=== PATIENT | female | born 1995 | race Caucasian/White ===

== ENCOUNTER 2020-07-04 08:23 | Outpatient (REF) | payer BC, SELFPAY ==
[2020-07-04 09:11] LABS: Hematocrit 43.1 % (37-47); Hemoglobin 14.5 g/dl (12.0-16.0); Mean Corpuscular HGB Conc 33.6 g/dl (31.0-35.0); Mean Corpuscular Hemoglobin 29.2 pg (27.0-33.0); Mean Corpuscular Volume 86.7 fL (80-98); Mean Platelet Volume 9.9 fL (9.4-12.3); Platelet Count 277 X10*3/uL (160-400); Red Blood Count 4.97 X10*6/uL (4.20-5.50); Red Cell Distribution Width 12.2 % (11.0-16.0); White Blood Count 5.6 X10*3/uL (4.8-10.8)
[2020-07-04 09:24] LABS: Alanine Aminotransferase 19 U/L (0-31); Albumin Level 4.5 g/dL (3.5-5.0); Alkaline Phosphatase 69 U/L (39-117); Anion Gap 11 (12-20); Aspartate Amino Transferase 25 U/L (5-31); Bilirubin Direct 0.2 mg/dL (0.0-0.5); Bilirubin Total 0.4 mg/dL (0.0-1.0); Blood Urea Nitrogen 12 mg/dL (9-16); Calcium 9.3 mg/dL (8.4-10.2); Carbon Dioxide 28 mmol/L (22-29); Chloride 104 mmol/L (96-108); Cholesterol 146 mg/dL; Estimated Glomerular Filt Rate > 60; Glucose Fasting 90 mg/dL (60-99); HDL Cholesterol 69 mg/dL; LDL Cholesterol Calculated 69 mg/dl; Potassium 4.4 mmol/L (3.3-5.1); Sodium 139 mmol/L (135-145); Triglycerides 42 mg/dL
[2020-07-04 09:44] LABS: TSH reflex Free T4 1.55 uIU/mL (0.32-4.0)
== END 2020-07-04 08:24 | disposition home or self-care (01) ==
LOC: HO.LAB 08:23
PROVIDERS: PCP Hospitalist; Visit Provider Hospitalist
DX: Z00.00 Encounter for general adult medical examination without abnormal findings (principal)
CPT/HCPCS: 36415; 80048; 80061; 80076; 84443; 85027

== ENCOUNTER 2020-07-28 08:47 | Outpatient (REF) | payer OTHER, SELFPAY ==
[2020-07-28 09:10] LABS: COVID-19 Test Negative (Negative)
== END 2020-07-28 08:48 | disposition home or self-care (01) ==
LOC: HO.EMPCOV 08:47
PROVIDERS: Visit Provider Internal Medicine
DX: Z20.822 Contact with and (suspected) exposure to COVID-19 (principal)
CPT/HCPCS: 36415; 87635; C9803

== ENCOUNTER 2021-04-16 08:12 | Outpatient (REF) | payer BC, SELFPAY ==
[2021-04-16 13:43] LABS: CT PCR NOT DETECTED (Not Detect.); NG PCR NOT DETECTED (Not Detect.)
== END 2021-04-16 08:13 | disposition home or self-care (01) ==
LOC: HO.LAB 08:12
PROVIDERS: PCP Hospitalist; Visit Provider Advanced Practice Midwife
DX: Z01.411 Encounter for gynecological examination (general) (routine) with abnormal findings (principal); L68.0 Hirsutism; N94.6 Dysmenorrhea, unspecified
CPT/HCPCS: 87491; 87591; 88142

== ENCOUNTER 2021-04-22 09:54 | Outpatient (REF) | payer BC, SELFPAY ==
[2021-04-22 12:02] LABS: Thyroid Stimulating Hormone 0.98 uIU/mL (0.32-4.0)
[2021-04-25 01:41] LABS: DHEA Sulfate 449 mcg/dL (18-391)
[2021-04-25 02:12] LABS: Prolactin 12.9 ng/mL
[2021-04-28 11:07] LABS: Testosterone, Free 3.6 pg/mL (0.1-6.4); Testosterone, Total 38 ng/dL (2-45)
== END 2021-04-22 09:55 | disposition home or self-care (01) ==
LOC: HO.WFDLDS 09:54
PROVIDERS: PCP Hospitalist; Visit Provider Advanced Practice Midwife
DX: L68.0 Hirsutism (principal); N92.6 Irregular menstruation, unspecified
CPT/HCPCS: 36415; 82627; 83498; 84146; 84402; 84403; 84443

== ENCOUNTER 2021-05-07 11:00 | Outpatient (REF) | payer BC, SELFPAY ==
--- NOTE | ~2021-05-07 | US_ITS ---
EXAMINATION: US PELVIS CLINICAL INFORMATION: N92.6 - Irregular menstruation, unspecified. LMP 04/21/2021. Age 25. COMPARISON: None TECHNIQUE: Ultrasound of the pelvis is performed using both transabdominal and transvaginal transducers along with Doppler. Transvaginal imaging is performed due to inadequate visualization transabdominally. FINDINGS: Uterus: The uterus is anteverted and measures 7.3 x 3.4 x 4.4 cm. Volume 57 mL. The double wall endometrial thickness is normal at 8 mm. The uterus is smooth in contour and has normal myometrial echogenicity. No visible fibroid. Adnexa: Both ovaries are visualized. There is normal color flow to the adnexa. There is no ovarian torsion. There is no pelvic ascites or fluid collection. Right ovary measures 4.3 x 2.7 x 2.9 cm. Volume 17.7 mL. Left ovary measures 4.2 x 1.8 x 2.6 cm. Volume 10.3 mL. There are scattered follicles seen in both ovaries, under 12 in number on each side. Dominant follicle measuring only 1.3 cm. US/US pelvic and transvaginal IMPRESSION: 1. Normal pelvic wall endometrial millimeters. 2. No visible fibroid. 3. No adnexal mass or pelvic ascites.
== END 2021-05-07 11:01 | disposition home or self-care (01) ==
LOC: HO.US 11:00
PROVIDERS: PCP Hospitalist; Visit Provider Advanced Practice Midwife
DX: N92.6 Irregular menstruation, unspecified (principal); L68.0 Hirsutism
CPT/HCPCS: 76830; 76856

== ENCOUNTER → 2021-05-14 15:57 | Outpatient (BNVA) | payer BC, SELFPAY | PROVIDERS: PCP Hospitalist; Visit Provider Advanced Practice Midwife ==

== ENCOUNTER 2021-12-18 09:21 | Outpatient (REF) | payer BC, SELFPAY ==
[2021-12-18 11:49] LABS: Hematocrit 41.4 % (37.0-47.0); Hemoglobin 13.8 g/dl (12.0-16.0); Mean Corpuscular HGB Conc 33.3 g/dl (31.0-35.0); Mean Corpuscular Hemoglobin 28.6 pg (27.0-33.0); Mean Corpuscular Volume 85.9 fL (80.0-98.0); Mean Platelet Volume 9.9 fL (9.4-12.3); Platelet Count 283 X10*3/uL (160-400); Red Blood Count 4.82 X10*6/uL (4.20-5.50); Red Cell Distribution Width 12.5 % (11.0-16.0); White Blood Count 6.4 X10*3/uL (4.8-10.8)
[2021-12-18 12:07] LABS: Alanine Aminotransferase 7 U/L (0-31); Albumin Level 4.4 g/dL (3.5-5.0); Alkaline Phosphatase 69 U/L (39-117); Anion Gap 11 (12-20); Aspartate Amino Transferase 15 U/L (5-31); Bilirubin Total 0.7 mg/dL (0.0-1.0); Blood Urea Nitrogen 11 mg/dL (9-16); Calcium 8.9 mg/dL (8.4-10.2); Carbon Dioxide 25 mmol/L (22-29); Chloride 106 mmol/L (96-108); Cholesterol 145 mg/dL; Estimated Glomerular Filt Rate > 60; Glucose Fasting 77 mg/dL (60-99); HDL Cholesterol 63 mg/dL; LDL Cholesterol Calculated 76 mg/dl; Potassium 4.4 mmol/L (3.3-5.1); Sodium 138 mmol/L (135-145); Total Protein 6.9 g/dL (6.5-8.0); Triglycerides 33 mg/dL
[2021-12-18 12:28] LABS: TSH reflex Free T4 0.89 uIU/mL (0.32-4.0)
== END 2021-12-18 09:22 | disposition home or self-care (01) ==
LOC: HO.WFDLDS 09:21
PROVIDERS: Visit Provider Hospitalist
DX: Z00.00 Encounter for general adult medical examination without abnormal findings (principal)
CPT/HCPCS: 36415; 80053; 80061; 84443; 85027

== ENCOUNTER 2023-04-12 09:27 | Outpatient (AMB) | payer BC, SELFPAY ==
--- NOTE | 2023-04-12 09:32 | A.OFFPC_ITS ---
Vital Signs 04/12/23 09:34 Height 5 ft 6 in Weight 156 lb BMI 25.2 BP 114/60 Blood Pressure Location Rt brachial Position Sitting Respiration 12 Pulse 97 Pulse Source Pulse Oximeter Pulse Oximetry (%) 100 Oxygen Delivery Method Room Air Intake Visit Reasons: trans of care from [facility] [place] Note: Patient is here for a transfer of care from Kendall Kelly DNP to Alex Stratton DNP. Patient reports she has a concern for excessive thirst and frequent urination from fluid intake. Art Therapy Certified Supervisor Required: No Accompanied by: Self / Same As Patient Allergies No Known Allergies Allergy (Verified 04/12/23 09:40) Tobacco use date assessed: 04/12/23 Dental Screening Dental Screen Date: 04/12/23 Did you have a dental visit in the last 12 months?: No Did you have a dental problem in the last 6 months where you did not have access to dental care?: No Was dental information given to patient?: Patient has dentist HPI HPI Comments History of Present Illness Details 27-year-old female presents for transfer of care and an extended physical exam Her former PCP is AIDA who is no longer with the practice. Her last physical exam and blood work was in November 2021 She has past medical history of PCOS, hirsutism, dysmenorrhea, and allergic dermatitis She is not on prescription medications She reports persistent thirst and urination for the past 1 year. She offers no other complaints and denies acute symptoms at this time. She notes that she drinks alcohol occasionally. She denies smoking cigarette or recreational drug use She states that she is sexually active, in a monogamous relationship, and has not concerns for STD She notes that her last pap smear test was 2 years ago: normal [facility] Medical History Seasonal allergies Surgical History History of appendectomy Family History (Updated 04/12/23 @ 09:43 by Hansa Dotson CMA) Maternal Grandfather Heart attack Paternal Grandfather Diabetes Paternal Grandmother Breast cancer Mother Traveling blood clot in leg Maternal Grandmother Traveling blood clot in leg Social History (Updated 04/12/23 @ 09:45 by Hansa Dotson CMA) Household Members: Family Housing: House Alcohol intake: current Alcohol intake frequency: a few times a month Patient Tobacco Use Status: Never used Tobacco e-Cigarette/Vaping Use: Never Used service: No Current occupational status: employed Current [place] [employer] [place] [employer] Current occupational exposures/hazards: Yes Sexual orientation: Unable to collect Gender identity: Unable to collect Cognitive needs: No Hearing needs: No Vision needs: No Female Reproductive History Menstrual Age of Menarche: 12 Questionnaire PHQ-9 Over the last 2 weeks, how often have you been bothered by any of the following problems? 1. Little interest or pleasure in doing things: several days 2. Feeling down, depressed, or hopeless: not at all 3. Trouble falling or staying asleep, or sleeping too much: more than half the days 4. Feeling tired or having little energy: more than half the days 5. Poor appetite or overeating: not at all 6. Feeling bad about yourself - or that you are a failure or have let yourself or your family down: more than half the days 7. Trouble concentrating on things, such as reading the newspaper or watching television: not at all 8. Moving or speaking so slowly that other people could have noticed. Or the opposite - being so fidgety or restless that you have been moving around a lot more than usual: not at all 9. Thoughts that you would be better off or of hurting yourself in some way: not at all Total score: 7 Depression Screening Interpretation: Positive Depression Screening Done: Yes 32635 - PHQ-9 Billing: Yes Source: Developed by Drs. Jaxon Mann, Ani Suárez, Rodrigo Azevedo and colleagues, with an educational austyn from [employer]. Thrive Questionnaire Date Thrive assessed: 04/12/23 I am a: Patient What is your living situation today?: I have a steady place to live Within the past 12 months, did the food you bought not last and you didn't have the money to get more?: Never true Within the past 12 months, did you worry whether your food would run out before you got money to buy more?: Never true Do you have trouble paying for medicines?: No Do you have trouble getting transportation to medical appointments?: No Do you have trouble paying your heating and electricity bill?: No Do you have trouble taking care of your child, family member or friend?: No Do you have trouble with day-to-day activities such as bathing, preparing meals, shopping, managing finances, etc.?: No Are you currently unemployed and looking for a job?: No Are you interested in more education?: No Please select the resources that you would like help with: None Currently or been in a relationship where the following occur: no concerns reported AUDIT C Alcohol Use Questionnaire (AUDIT-C) 1. How often do you have a drink containing alcohol?: 2-4 times a month 2. How many drinks containing alcohol do you have on a typical day when you are drinking?: 1 or 2 3. How often do you have six or more drinks on one occasion?: Never Total Score: 2 BOBBY-7 AMB Questionnaire BOBBY-7 Date BOBBY - 7 assessed: 04/12/23 Feeling nervous, anxious, or on edge: 2 = More than half the days Not being able to stop or control worryin = Several days Worrying too much about different things: 1 = Several days Trouble relaxin = Not at all Being so restless that it is hard to sit still: 0 = Not at all Becoming easily annoyed or irritable: 1 = Several days Feeling afraid as if something awful might happen: 1 = Several days Total BOBBY-7 score (0-4 normal; 5-9 mild; 10-14 moderate; 15-21 severe): 6 Source: Developed by Drs. Jaxon Mann, Ani Suárez, Rodrigo Azevedo and colleagues, with an educational austyn from [employer]. BOBBY-7 Assessment Billing BOBBY-7 Assessment Tool: BOBBY-7 Assessment [id number] Review of Systems Const Details: Denies chills, Denies fatigue, Denies fever(s), Denies headache(s) and Denies weakness HEENT Denies change in vision, Denies dizziness, Denies headache(s), Denies hearing loss, Denies nasal congestion, Denies sinus pain, Denies sinus pressure and Den ies sore throat Card Denies chest pain, Denies lightheadedness, Denies dyspnea and Denies other (palpitations) Resp Denies cough, Denies dyspnea and Denies wheezing GI Denies abdominal pain, Denies melena, Denies hematochezia, Denies change in bowel habits, Denies dyspepsia and Denies nausea Denies hematuria and Denies dysuria Musc Denies abnormal gait, Denies myalgias, Denies arthralgias, Denies numbness and Denies tingling Skin/Breast Denies rash, Denies unusual bruising and Denies wounds Neuro Denies abnormal gait, Denies dizziness, Denies headache(s), Denies memory loss, Denies numbness, Denies Sensory deficit (Neuro), Denies tingling and Denies weakness Psych Denies anxiety, Denies depression and Denies memory loss Endo Denies cold intolerance, Denies fatigue, Denies heat intolerance, Reports polydipsia, Denies polydipsia and Report polyuria Grant/Lymph Denies easy bleeding and Denies easy bruising Aller/Immun Denies wheezing Physical exam (Primary Care) Vital Signs: Last Vital Signs Pulse 97 04/12/23 09:34 Resp 12 04/12/23 09:34 BP 114/60 04/12/23 09:34 Pulse Ox 100 04/12/23 09:34 Oxygen Delivery Method Room Air 04/12/23 09:34 BMI result Body Mass Index 25.2 Tobacco/Smoking Status: Tobacco use Status Tobacco use date assessed 04/12/23 04/12/23 09:42 Patient Tobacco Use Status Never used Tobacco 04/12/23 09:45 e-Cigarette/Vaping Use Never Used 04/12/23 09:45 PHQ-9: PHQ-9 Score PHQ-9: Total score 7 04/12/23 09:49 Depression Screening Interpretation: Positive Thrive Assessment: Date of Thrive Assessment Date Thrive assessed 04/12/23 04/12/23 09:49 Currently or been in a relationship where the following occur: no concerns reported Const Other: General: no acute distress, well developed, alert and awake Nutritional Appearance: well nourished Orientation/consciousness: patient oriented x3 HENMT Head: Yes normocephalic and Yes atraumatic Ears: hearing grossly normal bilaterally and TM's normal bilaterally General nose exam: Normal external nose present and Normal nares present Mouth: Normal oral and palatal mucosa present and moist mucous membranes Teeth and gingiva: dentition normal Throat: Yes oropharynx normal Eyes Pupils: Equal, round and reactive pupils present and Pupil accommodation reflex normal EOM: EOMs intact bilaterally Neck Neck: Yes normal visual inspection, Yes no lymphadenopathy and Yes trachea midline Thyroid: Thyroid normal Carotids: no bruits Lymphatic: no lymphadenopathy noted Chest Chest palpation & inspection: normal inspection of the chest Resp Effort & Inspection: normal respiratory effort Auscultation: clear to auscultation bilaterally Cardio Rate: regular rate Rhythm: regular rhythm Heart sounds: S1 normal heart sound present, S2 normal heart sound present, no gallops, no murmurs and no rubs Bruits: no abdominal aortic bruits and no carotid bruits GI Palpation (GI): No Abdominal aortic bruit present, Soft to palpation, nontender, No hepatosplenomegaly present and No Rebound tenderness present Auscultation: normal bowel sounds General: Yes no CVA tenderness Back/Spine/Pelvis Back: no CVA tenderness Cervical Spine: cervical ROM normal and No Cervical spine tenderness Thoracic/Lumbar Spine: thoraco-lumbar ROM normal, No pain with thoraco-lumbar ROM, No thoracic spinal tenderness and No lumbar spinal tenderness Skin General: warm and dry. Normal skin color. Normal skin turgor Lesions: no lesions Rashes: no rashes Trauma: no lacerations or abrasions Wounds: no wounds Nails: normal Neuro General: patient oriented x3, gait normal and CN's II-XI intact bilaterally Cranial nerves: Yes Equal, round and reactive pupils present Cognition (Neuro): normal cognition Gait exam (Neuro): Normal gait present Motor exam (neuro): 5/5 motor strength present throughout Sensory Exam: No Sensory deficit (Neuro) Deep tendon reflexes (DTR's): Right patellar reflex intensity grade: 2+ and Left patellar reflex intensity grade: 2+ Extrem General: Yes normal to inspection, No edema and No calf tenderness Psych Appearance: grossly normal Affect: normal affect Attitude: cooperative Thought process: Normal thought process present Assessment and Plan Assessment & Plan (1) Normal physical exam: Code(s): Z00.00 - Encounter for general adult medical examination without abnormal findings Plan: No significant physical restrictions or limitations noted Advised to get fasting blood work done and schedule a telehealth visit for labs review Return with worsening symptoms or concerns Verbalized understanding and agreed with treatment plan. (2) Polydipsia: Code(s): R63.1 - Polydipsia Plan: She reports persistent thirst and urination for the past 1 year Likely insulin resistant and hyperglycemia due to PCOS Will check fasting glucose and make changes as needed Advised to get fasting blood work done and schedule a follow-up visit for labs review Return with concerns or worsening symptoms Verbalized understanding and agreed with the plan. (3) Polyuria: Code(s): R35.89 - Other polyuria Plan: As above (4) Laboratory tests ordered as part of a complete physical exam (CPE): Code(s): Z00.00 - Encounter for general adult medical examination without abnormal findings Plan: Fasting labs ordered as part of a complete physical exam. Advised to fast for at least 10 hours before getting labs drawn. May drink water Verbalized understanding and agreed with treatment plan. Orders: Orders Complete Blood Count Auto Diff Today Z00.00 - Encounter for general adult medical examination without abnormal findings Lipid Panel Today Z00.00 - Encounter for general adult medical examination without abnormal findings UA CC w/rflx Micro + Cult Today Z00.00 - Encounter for general adult medical examination without abnormal findings Comprehensive Cruger. Panel Fast Today Z00.00 - Encounter for general adult medical examination without abnormal findings TSH reflex Free T4 Today Z00.00 - Encounter for general adult medical examination without abnormal findings Coding Level of Care Code Est Pt Prev Care [id number]) Diagnoses Normal physical exam Z00.00 Polydipsia R63.1 Polyuria R35.89 Laboratory tests ordered as part of a complete physical exam (CPE) Z00.00 Additional Codes BOBBY-7 Assessment Billing - BOBBY-7 Assessment Tool: BOBBY-7 Assessment [id number] ([id number])
[2023-04-12 09:34] VITALS: BP 114/60; PULSE 97; RESP 12; O2SAT 100; BMI 25.2
== END 2023-04-12 10:43 | disposition home or self-care (01) ==
PROVIDERS: PCP Hospitalist; Visit Provider Nurse Practitioner Family
DX: Z00.00 Encounter for general adult medical examination without abnormal findings (principal); R63.1 Polydipsia; R35.89 Other polyuria
CPT/HCPCS: 99395

== ENCOUNTER 2023-04-12 10:00 | Outpatient (REF) | payer BC, SELFPAY ==
[2023-04-12 12:25] LABS: Appearance Urine Clear; Color Urine Yellow; Glucose Urine UA Negative (Negative); Leukocyte Esterase Urine Negative (Negative); Nitrite Urine Negative (Negative); Urine Blood Negative (Negative); Urine Ketones Negative (Negative); Urine Protein Negative (Neg-Trace)
== END 2023-04-12 10:01 | disposition home or self-care (01) ==
LOC: HO.LAB 10:00
PROVIDERS: Visit Provider Nurse Practitioner Family
DX: Z00.00 Encounter for general adult medical examination without abnormal findings (principal)
CPT/HCPCS: 81003

== ENCOUNTER 2023-04-20 09:12 | Outpatient (REF) | payer BC, SELFPAY ==
[2023-04-20 09:21] LABS: MANUAL DIFF FLAG NO
[2023-04-20 09:59] LABS: Basophils Percent Auto 0.3 % (0-2); Eosinophils Absolute Auto 0.1 X10*3/uL (0.0-0.4); Eosinophils Percent Auto 1.1 % (0-4); Hematocrit 42.1 % (37.0-47.0); Hemoglobin 14.4 g/dl (12.0-16.0); Imm Gran Abs Auto 0.02 X10*3/uL (0.00-0.03); Imm Gran Pct Auto 0.3 % (0.0-0.4); Lymphocytes Absolute Auto 1.4 X10*3/uL (1.2-4.9); Lymphocytes Percent Auto 21.7 % (20-40); Mean Corpuscular HGB Conc 34.2 g/dl (31.0-35.0); Mean Corpuscular Hemoglobin 28.9 pg (27.0-33.0); Mean Corpuscular Volume 84.4 fL (80.0-98.0); Mean Platelet Volume 9.6 fL (9.4-12.3); Monocytes Absolute Auto 0.4 X10*3/uL (0.1-1.2); Monocytes Percent Auto 6.4 % (2-11); Neutrophils Absolute Auto 4.4 x10*3/uL (2.0-8.3); Neutrophils Percent Auto 70.2 % (45-73); Platelet Count 273 X10*3/uL (160-400); Red Blood Count 4.99 X10*6/uL (4.20-5.50); Red Cell Distribution Width 12.5 % (11.0-16.0); White Blood Count 6.2 X10*3/uL (4.8-10.8)
[2023-04-20 10:56] LABS: Alanine Aminotransferase 10 U/L (0-31); Albumin Level 4.4 g/dL (3.5-5.0); Alkaline Phosphatase 68 U/L (39-117); Anion Gap 9 (12-20); Aspartate Amino Transferase 17 U/L (5-31); Bilirubin Total 0.5 mg/dL (0.0-1.0); Blood Urea Nitrogen 13 mg/dL (9-16); Calcium 9.4 mg/dL (8.4-10.2); Carbon Dioxide 29 mmol/L (22-29); Chloride 106 mmol/L (96-108); Cholesterol 150 mg/dL (<200); Estimated Glomerular Filt Rate > 60; Glucose Fasting 81 mg/dL (60-99); HDL Cholesterol 71 mg/dL (>40); LDL Cholesterol Calculated 73 mg/dL (<100); Potassium 4.2 mmol/L (3.3-5.1); Sodium 140 mmol/L (135-145); Triglycerides 30 mg/dL (<150)
[2023-04-20 11:06] LABS: TSH reflex Free T4 1.24 uIU/mL (0.32-4.0)
== END 2023-04-20 09:13 | disposition home or self-care (01) ==
LOC: HO.LAB 09:12
PROVIDERS: PCP Nurse Practitioner Family; Visit Provider Nurse Practitioner Family
DX: Z00.00 Encounter for general adult medical examination without abnormal findings (principal)
CPT/HCPCS: 36415; 80053; 80061; 84443; 85025

== ENCOUNTER 2023-04-26 16:52 | Outpatient (REF) | payer BC, SELFPAY ==
[2023-04-26 17:55] LABS: Estimated Average Glucose 91 mg/dL; Hemoglobin A1c % 4.8 % (<6.0)
== END 2023-04-26 16:53 | disposition home or self-care (01) ==
LOC: HO.LAB 16:52
PROVIDERS: PCP Nurse Practitioner Family; Visit Provider Nurse Practitioner Family
DX: R63.1 Polydipsia (principal); R35.89 Other polyuria; E28.2 Polycystic ovarian syndrome
CPT/HCPCS: 36415; 83036

== ENCOUNTER → 2024-02-14 13:23 | Outpatient (BNVA) | payer BC, SELFPAY | PROVIDERS: PCP Nurse Practitioner Family; Visit Provider Nurse Practitioner Family ==

== ENCOUNTER 2024-04-07 10:00 | Outpatient (AMB) | payer OTHER, SELFPAY ==
--- NOTE | 2024-04-07 10:50 | AM.OFFWIN_ITS ---
Intake Vital Signs 04/07/24 10:51 Height 5 ft 6 in Weight 152 lb BMI 24.5 BP 106/72 Blood Pressure Location Rt brachial Position Sitting Pulse 66 Pulse Source Pulse Oximeter Temp 97.6 F Temp Source Oral Pulse Oximetry (%) 97 Oxygen Delivery Method Room Air Intake Visit Reasons: EP-UTI Intake Note: Pt is here today c/o burning and itchy upon urination x2days Patient Tobacco Use Status: Never used Tobacco Allergies No Known Allergies Allergy (Verified 04/07/24 11:26) Medication List - Last Reconciled 04/07/24 by Daniela Cobb, RETAIL EXPERIENCE SPECIALIST- metformin 500 mg PO DAILY 30 days HPI HPI Comments History of Present Illness Details Pleasant 28-year-old female here today with complaints of UTI symptoms that started a few days ago. She complains dysuria and itching both of which symptoms are worse at the end of voiding. Her last menstrual period was about 1 month ago. She was sexually active and not on control. She has no concern for STDs. She denies any vaginal discharge. She did use some uidw-hms-ifbrqmb UTI medication for 2 days prior to coming in today. She did report some mild nausea but relates that to the slju-aql-ltezllf medications. She denies any fever, chills, abdominal pain, back pain. Exam Awake alert oriented, no acute distress Mucous membranes moist Regular rate and rhythm No CVAT bilat No suprapubic tenderness Plan Urine preg test negative. UA positive. Treat with nitrofurantoin 1 tab p.o. b.i.d. x3 days. Educated if symptoms do not improve or worsen to seek additional care. This note is constructed using voice recognition software. While every effort has been made to ensure accuracy in workers' compensation claims supervisor, still errors may have been included Sometimes, these errors may affect the content or meaning of the given sentence . Total time spent caring for the patient today was 30 minutes. This includes time spent before the visit reviewing the chart, time spent during the visit, and time spent after the visit on documentation [facility] Medical History Seasonal allergies Surgical History History of appendectomy Family History (Updated 04/12/23 @ 09:43 by Hansa Dotson CMA) Maternal Grandfather Heart attack Paternal Grandfather Diabetes Paternal Grandmother Breast cancer Mother Traveling blood clot in leg Maternal Grandmother Traveling blood clot in leg Social History (Updated 04/12/23 @ 09:45 by Hansa Dotson CMA) Household Members: Family Both parents involved: Yes Housing: House Alcohol intake: current Alcohol intake frequency: a few times a month Patient Tobacco Use Status: Never used Tobacco e-Cigarette/Vaping Use: Never Used service: No Current occupational status: employed Current occupation: [employer] [place] [employer]ulatory [employer] team Current occupational exposures/hazards: Yes Sexual orientation: Unable to collect Gender identity: Unable to collect Cognitive needs: No Hearing needs: No Vision needs: No Female Reproductive History Menstrual Age of Menarche: 12 Physical Exam Vital Signs: Last Vital Signs Temp 97.6 F 04/07/24 10:51 Pulse 66 04/07/24 10:51 BP 106/72 04/07/24 10:51 Pulse Ox 97 04/07/24 10:51 Oxygen Delivery Method Room Air 04/07/24 10:51 BMI result Body Mass Index 24.5 Results AMB Urinalysis, Automated UA Leukoctes 500 Kofi/uL Last Edit by Taryn Villarreal CMA on 04/07/24 11:01 UA Nitrite Negative Last Edit by Taryn Villarreal CMA on 04/07/24 11:01 UA Urobilinogen 0.2 mg/dL Last Edit by Taryn Villarreal CMA on 04/07/24 11:01 UA Protein 30 mg/dL Last Edit by Taryn Villarreal CMA on 04/07/24 11:01 UA pH 7.0 Last Edit by Taryn Villarreal CMA on 04/07/24 11:01 UA Blood 200 Horace/uL Last Edit by Taryn Villarreal CMA on 04/07/24 11:01 UA Specific [place] 1.020 Last Edit by Taryn Villarreal CMA on 04/07/24 11:01 UA Ketone Negative Last Edit by Taryn Villarreal CMA on 04/07/24 11:01 UA Bilirubin 0 mg/dL Last Edit by Taryn Villarreal CMA on 04/07/24 11:01 UA Glucose 0 mg/dL Last Edit by Taryn Villarreal CMA on 04/07/24 11:01 AMB Test Urine AMB Test Urine Negative Last Edit by Taryn Villarreal CMA on 11:47 Results Reviewed Results Reviewed: Laboratory Last Values Urine pH (Auto) 7.0 04/07/24 10:52 Specific [place] (Auto) 1.020 04/07/24 10:52 Urine Protein (Auto) 30 mg/dL 04/07/24 10:52 Glucose (UA)(Auto) 0 mg/dL 04/07/24 10:52 Urine Ketones (Auto) Negative 04/07/24 10:52 Urine Blood (Auto) 200 Horace/uL 04/07/24 10:52 Urine Nitrite (Auto) Negative 04/07/24 10:52 Urine Bilirubin (Auto) 0 mg/dL 04/07/24 10:52 Urine Urobilinogen (Auto) 0.2 mg/dL 04/07/24 10:52 Leukocyte Esterase (Auto) 500 Kofi/uL 04/07/24 10:52 Tst Clinic Negative 04/07/24 11:46 Assessment & Plan Assessment & Plan (1) UTI (urinary tract infection): Code(s): N39.0 - Urinary tract infection, site not specified Qualifiers: Urinary tract infection type: acute cystitis Hematuria presence: with hematuria Qualified Code(s): N30.01 - Acute cystitis with hematuria Plan: . (2) test negative: Code(s): Z32.02 - Encounter for test, result negative Plan: . Orders: Orders AMB Urinalysis Automated Today Z13.9 - Encounter for screening, unspecified AMB HCG Urine Test Today Z32.02 - Encounter for test, result negative Medications: New nitrofurantoin monohyd/m-cryst 100 mg must administer with a meal/food 100 mg PO Q12H 3 days 6 caps 0RF Patient Instructions: What is the urinary tract? This is the group of organs in the body that handle urine (figure 1). It includes the: ?Kidneys ? These are 2 vasquez-shaped organs that filter the blood to make urine. ?Bladder ? This is a balloon-shaped organ that stores urine. ?Ureters ? These are 2 tubes that carry urine from the kidneys to the bladder. ?Urethra ? This is the tube that carries urine from the bladder to the outside of the body. What are urinary tract infections? Urinary tract infections, or UTIs, are infections that affect either the bladder or the kidneys: ?Bladder infections are more common than kidney infections. They happen when bacteria get into the urethra and travel up into the bladder. The medical term for bladder infection is cystitis. Most of the time, when people talk about a UTI, they mean a bladder infection. ?Kidney infections happen when the bacteria travel even higher, up into the kidneys. The medical term for kidney infection is pyelonephritis. This is more serious than a bladder infection, and can lead to other serious problems if it is not treated properly. Both bladder and kidney infections are more common in females than males. The risk of UTIs is also higher in people who have a urinary catheter. A catheter is a thin, flexible tube that drains urine from the bladder. It might be used in people who are in the hospital and cannot urinate the normal way. What are the symptoms of a bladder infection? The symptoms include: ?Pain or a burning feeling when you urinate ?The need to urinate often ?The need to urinate suddenly or in a hurry ?Blood in the urine What are the symptoms of a kidney infection? The symptoms of a kidney infection can include the same urinary symptoms that happen with a bladder infection. In addition, kidney infections can cause: ?Fever ?Back pain ?Nausea or vomiting Will I need tests? Maybe. If you think that you might have a UTI, call your doctor or nurse. Sometimes, they can tell if you have one just by learning about your symptoms. Your doctor or nurse might do a simple urine test in the office. They might also do a more involved urine test to check for bacteria. How are UTIs treated? Most are treated with antibiotic pills. These work by killing the germs that cause the infection. ?If you have a bladder infection, you will probably need to take antibiotics for 3 to 7 days. ?If you have a kidney infection, you will probably need to take antibiotics for longer. Some people need to take them for 10 days. If you have a kidney infection, it's also possible that you will need to be treated in the hospital. Your symptoms should begin to improve within a day of starting antibiotics. But you should finish all of the antibiotic pills. Otherwise, the infection might come back. If needed, you can also take a medicine to numb your bladder. This medicine ea ses the pain caused by UTIs. It also reduces the need to urinate. What if I get bladder infections a lot? First, check with your doctor or nurse to make sure that you are really having bladder infections. The symptoms of bladder infection can be caused by other things. Your doctor or nurse will want to see if those problems might be causing your symptoms. If your doctor confirms that you are having repeated infections, there are things you can do to keep from getting more infections. These include: ?Drinking more fluid ? This can help prevent bladder infections. ?Vaginal estrogen ? If you have already been through menopause, your doctor might suggest this. Vaginal estrogen comes in a cream or a flexible ring that you put into your vagina. It can help prevent bladder infections. Other things that might help: ?Avoid spermicides (sperm-killing creams or gels) ? Spermicide is a form of control. It seems to increase the risk of bladder infections in some females, especially when used with a diaphragm. If you use spermicide and get a lot of bladder infections, you might want to try switching to a different form of control. ?Urinate right after sex ? Some doctors think this helps, because it helps flush out germs that might get into the bladder during sex. There is no proof it works, but it also cannot hurt. If you get a lot of bladder infections, and the above methods have not helped, talk to your doctor about what else you can do to prevent infection. Taking an antibiotic every day or after sex can help prevent bladder infections. But long- term use of antibiotics has downsides, so doctors usually suggest trying other things first, such as: ?Methenamine (brand name: Hiprex) ? This is a pill you take every day. It changes your urine to make it harder for bacteria to grow. It works almost as well as antibiotics to prevent bladder infections. ?Cranberry juice or other cranberry products ? These might help prevent bladder infections. But doctors do not know what the best dose is. Can other products prevent bladder infections? People often wonder about other natural products that claim to help prevent bladder infections. These include probiotic pills, vitamin C, and D-mannose. There is not good evidence that these things work. However, there is also no clear evidence that they are harmful. If you have questions about these or other products, talk with your doctor or nurse. Coding Level of Care Code Est Pt Level 4 (80899) Diagnoses Acute cystitis with hematuria N30.01 Urinary tract infection type: acute cystitis Hematuria presence: with hematuria test negative Z32.02
[2024-04-07 10:51] VITALS: BP 106/72; PULSE 66; TEMP 36.4; O2SAT 97; BMI 24.5
== END 2024-04-07 11:56 | disposition home or self-care (01) ==
PROVIDERS: PCP Nurse Practitioner Family; Visit Provider Nurse Practitioner Family
DX: N30.01 Acute cystitis with hematuria (principal); Z32.02 Encounter for pregnancy test, result negative; Z13.9 Encounter for screening, unspecified

== ENCOUNTER → 2024-04-07 10:00 | Outpatient (BNVA) | payer OTHER, SELFPAY | PROVIDERS: PCP Nurse Practitioner Family | DX: N30.01 Acute cystitis with hematuria (principal); Z32.02 Encounter for pregnancy test, result negative | CPT/HCPCS: 81003; 81025 ==

== ENCOUNTER 2024-04-13 10:27 | Outpatient (AMB) | payer OTHER, SELFPAY ==
--- NOTE | 2024-04-13 10:30 | A.OFFPC_ITS ---
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 Is last menstrual period known: Yes Last menstrual period: 03/01/24 Post menopausal: No Patient : No Allergies No Known Allergies Allergy (Verified 04/13/24 10:43) Medication List - Last Reconciled 04/13/24 by Alex Stratton CNP metformin 500 mg PO DAILY 30 days Tobacco use date assessed: 04/13/24 Dental Screening Dental Screen Date: 04/13/24 Did you have a dental visit in the last 12 months?: No Did you have a dental problem in the last 6 months where you did not have access to dental care?: No Was dental information given to patient?: Patient declined HPI HPI Comments History of Present Illness Details 28-year-old female presents for transfer of care and an extended physical exam She has past medical history of PCOS, hirsutism, dysmenorrhea, allergic dermatitis, and astigmatism of the left eye She is on metformin 500 mg daily for PCOS She admits to making healthy dietary changes and exercising routinely. She generally sleeps well She notes that she generally feel anxious about navigating through everyday life and the responsibility of being an adult. She does not feel overwhelmed or not being in control. She denies depression Nonsmoker. Drinks 3-4 drinks of liquor couple times monthly. No recreational drugs Last eye exam was in 10/2023 with [facility]. She will sign a consent for her PCP to obtain records Last Pap smear test was in 03/2021: negative. She will schedule an appointment with her acid concentrator for a pap smear test Last tetanus vaccine was at childhood; requests vaccination She has not been vaccinated for the flu this season; requests vaccination She notes that she is sexually active, in a monogamous relationship, and has no concern for STDs [facility] Medical History Seasonal allergies Surgical History History of appendectomy Family History (Updated 04/12/23 @ 09:43 by Hansa Dotson CMA) Maternal Grandfather Heart attack Paternal Grandfather Diabetes Paternal Grandmother Breast cancer Mother Traveling blood clot in leg Maternal Grandmother Traveling blood clot in leg Social History (Updated 04/12/23 @ 09:45 by Hansa Dotson CMA) Household Members: Family Both parents involved: Yes Housing: House Alcohol intake: current Alcohol intake frequency: a few times a month Patient Tobacco Use Status: Never used Tobacco e-Cigarette/Vaping Use: Never Used service: No Current occupational status: employed Current occupation: [employer] [facility] [place] [employer]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 1. Little interest or pleasure in doing things: more than half the days 2. Feeling down, depressed, or hopeless: several days 3. Trouble falling or staying asleep, or sleeping too much: several days 4. Feeling tired or having little energy: more than half the days 5. Poor appetite or overeating: not at all 6. Feeling bad about yourself - or that you are a failure or have let yourself or your family down: several days 7. Trouble concentrating on things, such as reading the newspaper or watching television: several days 8. Moving or speaking so slowly that other people could have noticed. Or the opposite - being so fidgety or restless that you have been moving around a lot more than usual: not at all 9. Thoughts that you would be better off or of hurting yourself in some way: not at all Total score: 8 Depression Screening Interpretation: Positive Depression Screening Done: Yes 86952 - PHQ-9 Billing: Yes Source: Developed by Drs. Jaxon Mann, Ani Suárez, Rodrigo Azevedo and colleagues, with an educational austyn from [employer] Thrive Questionnaire Date Thrive assessed: 04/13/24 I am a: Patient What is your living situation today?: I have a steady place to live Within the past 12 months, did the food you bought not last and you didn't have the money to get more?: Never true Within the past 12 months, did you worry whether your food would run out before you got money to buy more?: Never true Do you have trouble paying for medicines?: No Do you have trouble getting transportation to medical appointments?: No Do you have trouble paying your heating and electricity bill?: No Do you have trouble taking care of your child, family member or friend?: No Do you have trouble with day-to-day activities such as bathing, preparing meals, shopping, managing finances, etc.?: No Are you currently unemployed and looking for a job?: No Are you interested in more education?: No Please select the resources that you would like help with: None Currently or been in a relationship where the following occur: No concerns reported THRIVE Score: 0 AUDIT C Alcohol Use Questionnaire (AUDIT-C) 1. How often do you have a drink containing alcohol?: Monthly or less 2. How many drinks containing alcohol do you have on a typical day when you are drinking?: 3 or 4 3. How often do you have six or more drinks on one occasion?: Less than monthly Total Score: 3 Score Reviewed/Action Taken: Yes BOBBY-7 AMB Questionnaire BOBBY-7 Date BOBBY - 7 assessed: 04/13/24 Feeling nervous, anxious, or on edge: 1 = Several days Not being able to stop or control worryin = More than half the days Worrying too much about different things: 2 = More than half the days Trouble relaxin = Several days Being so restless that it is hard to sit still: 0 = Not at all Becoming easily annoyed or irritable: 2 = More than half the days Feeling afraid as if something awful might happen: 3 = Nearly every day Total BOBBY-7 score (0-4 normal; 5-9 mild; 10-14 moderate; 15-21 severe): 11 Source: Developed by Drs. Jaxon Mann, Ani Suárez, Rodrigo Azevedo and colleagues, with an educational austyn from [employer] BOBBY-7 Assessment Billing BOBBY-7 Assessment Tool: BOBBY-7 Assessment 74448 Review of Systems Const Details: Denies chills, Denies fatigue, Denies fever(s), Denies headache(s) and Denies weakness HEENT Denies change in vision, Denies dizziness, Denies headache(s), Denies hearing loss, Denies nasal congestion, Denies sinus pain, Denies sinus pressure and Denies sore throat Card Denies chest pain, Denies lightheadedness, Denies dyspnea and Denies other (palpitations) Resp Denies cough, Denies dyspnea and Denies wheezing GI Denies abdominal pain, Denies melena, Denies hematochezia, Denies change in bowel habits, Denies dyspepsia and Denies nausea Denies hematuria and Denies dysuria Musc Denies abnormal gait, Denies myalgias, Denies arthralgias, Denies numbness and Denies tingling Skin/Breast Denies rash, Denies unusual bruising and Denies wounds Neuro Denies abnormal gait, Denies dizziness, Denies headache(s), Denies memory loss, Denies numbness, Denies Sensory deficit (Neuro), Denies tingling and Denies weakness Psych Reports anxiety, Denies depression and Denies memory loss Endo Denies cold intolerance, Denies fatigue, Denies heat intolerance, Denies polydipsia and Denies polyuria Grant/Lymph Denies easy bleeding and Denies easy bruising Aller/Immun Denies wheezing Physical exam (Primary Care) Vital Signs: Last Vital Signs Temp 97.6 F 04/13/24 10:36 Pulse 89 04/13/24 10:36 Resp 16 04/13/24 10:36 BP 98/70 04/13/24 10:36 Pulse Ox 99 04/13/24 10:36 Oxygen Delivery Method Room Air 04/13/24 10:36 BMI result Body Mass Index 24.3 Tobacco/Smoking Status: Tobacco use Status Tobacco use date assessed 04/13/24 04/13/24 10:36 Patient Tobacco Use Status Never used Tobacco 04/13/24 10:34 e-Cigarette/Vaping Use Never Used 04/13/24 10:34 PHQ-9: PHQ-9 Score PHQ-9: Total score 8 04/13/24 11:20 Depression Screening Interpretation: Positive Thrive Assessment: Date of Thrive Assessment Date Thrive assessed 04/13/24 04/13/24 10:34 Currently or been in a relationship where the following occur: No concerns reported Const Other: General: no acute distress, well developed, alert and awake Nutritional Appearance: well nourished Orientation/consciousness: patient oriented x3 [facility] Head: Yes normocephalic and Yes atraumatic Ears: hearing grossly normal bilaterally and TM's normal bilaterally General nose exam: Normal external nose present and Normal nares present Mouth: Normal oral and palatal mucosa present and moist mucous membranes Teeth and gingiva: dentition normal Throat: Yes oropharynx normal Eyes Pupils: Equal, round and reactive pupils present and Pupil accommodation reflex normal EOM: EOMs intact bilaterally Neck Neck: Yes normal visual inspection, Yes no lymphadenopathy and Yes trachea midline Thyroid: Thyroid normal Carotids: no bruits Lymphatic: no lymphadenopathy noted Chest Chest palpation & inspection: normal inspection of the chest Resp Effort & Inspection: normal respiratory effort Auscultation: clear to auscultation bilaterally Cardio Rate: regular rate Rhythm: regular rhythm Heart sounds: S1 normal heart sound present, S2 normal heart sound present, no gallops, no murmurs and no rubs Bruits: no abdominal aortic bruits and no carotid bruits GI Palpation (GI): No Abdominal aortic bruit present, Soft to palpation, nontender, No hepatosplenomegaly present and No Rebound tenderness present Auscultation: normal bowel sounds General: Yes no CVA tenderness Back/Spine/Pelvis Back: no CVA tenderness Cervical Spine: cervical ROM normal and No Cervical spine tenderness Thoracic/Lumbar Spine: thoraco-lumbar ROM normal, No pain with thoraco-lumbar ROM, No thoracic spinal tenderness and No lumbar spinal tenderness Skin General: warm and dry. Normal skin color. Normal skin turgor Lesions: no lesions Rashes: no rashes Trauma: no lacerations or abrasions Wounds: no wounds Nails: normal Neuro General: patient oriented x3, gait normal and CN's II-XI intact bilaterally Cranial nerves: Yes Equal, round and reactive pupils present Cognition (Neuro): normal cognition Gait exam (Neuro): Normal gait present Motor exam (neuro): 5/5 motor strength present throughout Sensory Exam: No Sensory deficit (Neuro) Deep tendon reflexes (DTR's): Right patellar reflex intensity grade: 2+ and Left patellar reflex intensity grade: 2+ Extrem General: Yes normal to inspection, No edema and No calf tenderness Psych Appearance: grossly normal Affect: normal affect Attitude: cooperative Thought process: Normal thought process present Office Procedures Flu Questionnaire Does the patient have a severe egg allergy?: No Does the patient have severe life threatening allergies?: No Does the patient have a fever or illness today?: No Has the patient ever had Guillain-[place] Syndrome?: No Has the patient ever had any past reaction to a flu shot?: No Immunizations Fluarix Triv [id number] (PF) 45 mcg (15 mcg x 3)/0.5 mL IM syringe Performing Provider: Alex Stratton CNP Performing Location: [facility] [place] [facility] Administered by: Candelaria Don RN on 04/13/24 11:20 Dose Route Admin Location Dispensed Lot Number Expiration Date NDC Document Control Associate 0.5 mL IM Right Deltoid 0.5 mL [id number] 11/26/24 [id number] [employer] VIS Given Date VIS Provided VIS Publication Date 04/13/24 Single Vaccine 21 Eligibility Eligibility Date Funding Source Not VFC Eligible 04/13/24 Private Boostrix Tdap 2.5 Lf unit-8 mcg-5 Lf/0.5 mL intramuscular syringe Performing Provider: Alex Stratton CNP Performing Location: [facility] Administered by: Candelaria Don RN on 04/13/24 11:20 Dose Route Admin Location Dispensed Lot Number Expiration Date NDC Document Control Associate 0.5 mL IM Left Deltoid 0.5 mL [id number] 02/24/25 [id number] [employer] VIS Given Date VIS Provided VIS Publication Date 04/13/24 Single Vaccine 21 Eligibility Eligibility Date Funding Source Not VFC Eligible 04/13/24 Private Coding Level of Care Code Est Pt Prev Care [id number]) Diagnoses Normal physical exam Z00.00 PCOS (polycystic ovarian syndrome) E28.2 Anxiety F41.9 Vaccine for tetanus toxoid Z23 Flu vaccine need Z23 Laboratory tests ordered as part of a complete physical exam (CPE) Z00.00 Additional Codes BOBBY-7 Assessment Billing - BOBBY-7 Assessment Tool: BOBBY-7 Assessment 35859 ([id number]) PHQ-9 - 16855 - PHQ-9 Billing: Yes ([id number]) Assessment & Plan Assessment & Plan (1) Normal physical exam: Code(s): Z00.00 - Encounter for general adult medical examination without abnormal findings Category: Medical Plan: No significant physical limitation noted Continue current treatment regimen Healthy diet and routine exercise encouraged Encouraged to establish with a dentist for routine dental care Advised to get lab work done in follow-up for telehealth visit in 2-3 weeks for labs review Return sooner with symptoms or concerns Verbalized understanding and agreed with the treatment plan (2) PCOS (polycystic ovarian syndrome): Code(s): E28.2 - Polycystic ovarian syndrome Category: Medical Plan: Metformin as prescribed (3) Anxiety: Code(s): F41.9 - Anxiety disorder, unspecified Category: Medical Plan: She is generally anxious about navigating through everyday life and the responsibility of being an adult. She does not feel overwhelmed or not being in control. No depression PHQ-9 and BOBBY-7 scores revealed mild depression and moderate anxiety respectively Routine exercise encouraged Follow-up with worsening or new symptoms Verbalized understanding and agreed with the treatment plan (4) Vaccine for tetanus toxoid: Code(s): Z23 - Encounter for immunization Category: Medical Plan: Last tetanus vaccine was at childhood Tetanus vaccine administered today by our nurse (5) Flu vaccine need: Code(s): Z23 - Encounter for immunization Category: Medical Plan: She has not been vaccinated for the flu this season Vaccine administered today by our nurse (6) Laboratory tests ordered as part of a complete physical exam (CPE): Code(s): Z00.00 - Encounter for general adult medical examination without abnormal findings Category: Medical Plan: Fasting labs ordered as part of a complete physical exam. Advised to fast for at least 10 hours before getting labs drawn. May drink water Verbalized understanding and agreed with treatment plan. Orders: Orders Complete Blood Count Auto Diff Today Z00.00 - Encounter for general adult medical examination without abnormal findings Lipid Panel Today Z00.00 - Encounter for general adult medical examination without abnormal findings Comprehensive [place]. Panel Fast Today Z00.00 - Encounter for general adult medical examination without abnormal findings TSH reflex Free T4 Today Z00.00 - Encounter for general adult medical examination without abnormal findings UA CC w/rflx Micro + Cult Today Z00.00 - Encounter for general adult medical examination without abnormal findings Influenza [id number] Immunization Today Z23 - Encounter for immunization TDaP Immunization Today Z23 - Encounter for immunization
[2024-04-13 10:36] VITALS: BP 98/70; PULSE 89; RESP 16; TEMP 36.4; O2SAT 99; BMI 24.3
== END 2024-04-13 11:18 | disposition home or self-care (01) ==
PROVIDERS: PCP Nurse Practitioner Family; Visit Provider Nurse Practitioner Family
DX: Z00.00 Encounter for general adult medical examination without abnormal findings (principal); E28.2 Polycystic ovarian syndrome; F41.9 Anxiety disorder, unspecified; Z23 Encounter for immunization

== ENCOUNTER → 2024-04-13 10:27 | Outpatient (BNVA) | payer OTHER, SELFPAY | PROVIDERS: PCP Nurse Practitioner Family; Visit Provider Nurse Practitioner Family | DX: Z00.00 Encounter for general adult medical examination without abnormal findings (principal); Z23 Encounter for immunization; E28.2 Polycystic ovarian syndrome; F41.9 Anxiety disorder, unspecified | CPT/HCPCS: 90471; 90472; 90656; 90715; 96127 ==

== ENCOUNTER 2024-04-24 09:56 | Outpatient (REF) | payer OTHER, SELFPAY ==
[2024-04-24 10:47] LABS: Appearance Urine Clear; Color Urine Yellow; Glucose Urine UA Negative (Negative); Leukocyte Esterase Urine Negative (Negative); Nitrite Urine Negative (Negative); Specific Gravity - Urine 1.015 (1.005-1.025); Urine Blood Negative (Negative); Urine Ketones Negative (Negative); Urine Protein Negative (Neg-Trace)
[2024-04-24 10:49] LABS: MANUAL DIFF FLAG NO
[2024-04-24 10:57] LABS: Basophils Percent Auto 0.2 % (0-2); Eosinophils Absolute Auto 0.1 X10*3/uL (0.0-0.4); Eosinophils Percent Auto 0.6 % (0-4); Hematocrit 42.4 % (37.0-47.0); Hemoglobin 14.6 g/dl (12.0-16.0); Imm Gran Abs Auto 0.04 X10*3/uL (0.00-0.03); Imm Gran Pct Auto 0.5 % (0.0-0.4); Lymphocytes Absolute Auto 1.8 X10*3/uL (1.2-4.9); Lymphocytes Percent Auto 21.4 % (20-40); Mean Corpuscular HGB Conc 34.4 g/dl (31.0-35.0); Mean Corpuscular Volume 84.1 fL (80.0-98.0); Mean Platelet Volume 9.6 fL (9.4-12.3); Monocytes Absolute Auto 0.5 X10*3/uL (0.1-1.2); Monocytes Percent Auto 5.7 % (2-11); Neutrophils Absolute Auto 5.9 x10*3/uL (2.0-8.3); Neutrophils Percent Auto 71.6 % (45-73); Platelet Count 295 X10*3/uL (160-400); Red Blood Count 5.04 X10*6/uL (4.20-5.50); Red Cell Distribution Width 12.6 % (11.0-16.0); White Blood Count 8.2 X10*3/uL (4.8-10.8)
[2024-04-24 11:20] LABS: Alanine Aminotransferase 12 U/L (0-31); Albumin Level 4.3 g/dL (3.5-5.0); Alkaline Phosphatase 61 U/L (39-117); Anion Gap 11 (12-20); Aspartate Amino Transferase 19 U/L (5-31); Bilirubin Total 0.5 mg/dL (0.0-1.0); Blood Urea Nitrogen 9 mg/dL (9-16); Calcium 9.3 mg/dL (8.4-10.2); Carbon Dioxide 26 mmol/L (22-29); Chloride 103 mmol/L (96-108); Cholesterol 144 mg/dL (<200); Estimated Glomerular Filt Rate > 60; Glucose Fasting 88 mg/dL (60-99); HDL Cholesterol 61 mg/dL (>40); LDL Cholesterol Calculated 76 mg/dL (<100); Potassium 4.1 mmol/L (3.3-5.1); Sodium 136 mmol/L (135-145); Triglycerides 38 mg/dL (<150)
[2024-04-24 11:25] LABS: TSH reflex Free T4 1.05 uIU/mL (0.32-4.0)
== END 2024-04-24 09:57 | disposition home or self-care (01) ==
LOC: HO.10HDL 09:56
PROVIDERS: Visit Provider Nurse Practitioner Family
DX: Z00.00 Encounter for general adult medical examination without abnormal findings (principal)
CPT/HCPCS: 36415; 80053; 80061; 81003; 84443; 85025

== ENCOUNTER 2025-04-16 10:16 | Outpatient (AMB) | payer OTHER, SELFPAY ==
--- NOTE | 2025-04-16 10:17 | MHC.PC.OV ---
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 Is last menstrual period known: Yes Last menstrual period: 10/31/24 Post menopausal: No Patient : Yes (23 wks tomorrow) Followed by:: pt is Allergies No Known Allergies Allergy (Verified 04/16/25 10:37) Medication List - Last Reconciled 04/16/25 by Alex Stratton CNP ondansetron HCl 4 mg PO Q8H Tobacco use date assessed: 04/16/25 Dental Screening Dental Screen Date: 04/16/25 Did you have a dental visit in the last 12 months?: No Did you have a dental problem in the last 6 months where you did not have access to dental care?: No Was dental information given to patient?: No HPI HPI Comments History of Present Illness Details 29-year-old female presents for an extended physical exam. She is almost 23 weeks with a baby boy and the is going well. She is followed by [facility] pricing strategist. She is on ondansetron as needed for nausea. Acute issue(s) - None Past Medical History - PCOS, hirsutism, dysmenorrhea, allergic dermatitis, astigmatism of the left eye, anxiety Social History - Nonsmoker. Does not vape. Does not drink alcohol. Denies recreational drug use - Has been making healthy dietary choices. Exercises routinely. Generally sleep well - She is sexually active, in a monogamous relationship, and has no concern for STDs Health maintenance - Last eye exam was in 2022. 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 pricing strategist. Specialists - [facility] pricing strategist PFS Medical History Seasonal allergies Surgical History History of appendectomy Family History Maternal Grandfather Heart attack Paternal Grandfather Diabetes Paternal Grandmother Breast cancer Mother Traveling blood clot in leg Maternal Grandmother Traveling blood clot in leg Social History Household Members: Family Both parents involved: Yes Housing: House Alcohol intake: current Alcohol intake frequency: a few times a month Patient Tobacco Use Status: Never used Tobacco e-Cigarette/Vaping Use: Never Used Second Hand Smoke Exposure: No service: No Current occupational status: employed 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 1. Little interest or pleasure in doing things: not at all 2. Feeling down, depressed, or hopeless: not at all 3. Trouble falling or staying asleep, or sleeping too much: several days 4. Feeling tired or having little energy: several days 5. Poor appetite or overeating: not at all 6. Feeling bad about yourself - or that you are a failure or have let yourself or your family down: not at all 7. Trouble concentrating on things, such as reading the newspaper or watching television: not at all 8. Moving or speaking so slowly that other people could have noticed. Or the opposite - being so fidgety or restless that you have been moving around a lot more than usual: not at all 9. Thoughts that you would be better off or of hurting yourself in some way: not at all Total score: 2 Depression Screening Interpretation: Negative Depression Screening Done: Yes 56864 - PHQ-9 Billing: Yes Source: Developed by Drs. Jaxon Mann, Ani Suárez, Rodrigo Azevedo and colleagues, with an educational austyn from [employer]. Thrive Questionnaire Date Thrive assessed: 04/16/25 I am a: Patient What is your living situation today?: I have a steady place to live Within the past 12 months, did the food you bought not last and you didn't have the money to get more?: Never true Within the past 12 months, did you worry whether your food would run out before you got money to buy more?: Never true Do you have trouble paying for medicines?: No Do you have trouble getting transportation to medical appointments?: No Do you have trouble paying your heating and electricity bill?: No Do you have trouble taking care of your child, family member or friend?: No Do you have trouble with day-to-day activities such as bathing, preparing meals, shopping, managing finances, etc.?: No Are you currently unemployed and looking for a job?: No Are you interested in more education?: No Please select the resources that you would like help with: None Currently or been in a relationship where the following occur: No concerns reported THRIVE Score: 0 AUDIT C Alcohol Use Questionnaire (AUDIT-C) 1. How often do you have a drink containing alcohol?: Never 3. How often do you have six or more drinks on one occasion?: Never Total Score: 0 Score Reviewed/Action Taken: Yes BOBBY-7 AMB Questionnaire BOBBY-7 Date BOBBY - 7 assessed: 04/16/25 Feeling nervous, anxious, or on edge: 1 = Several days Not being able to stop or control worryin = Several days Worrying too much about different things: 1 = Several days Trouble relaxin = Several days Being so restless that it is hard to sit still: 0 = Not at all Becoming easily annoyed or irritable: 2 = More than half the days Feeling afraid as if something awful might happen: 2 = More than half the days Total BOBBY-7 score (0-4 normal; 5-9 mild; 10-14 moderate; 15-21 severe): 8 Source: Developed by Drs. Jaxon Mann, Ani Suárez, Rodrigo Azevedo and colleagues, with an educational austyn from [employer]. BOBBY-7 Assessment Billing BOBBY-7 Assessment Tool: BOBBY-7 Assessment 30951 Review of Systems Const Details: Denies chills, Denies fatigue, Denies fever(s), Denies headache(s) and Denies weakness HEENT Denies change in vision, Denies dizziness, Denies headache(s), Denies hearing loss, Denies nasal congestion, Denies sinus pain, Denies sinus pressure and Denies sore throat Card Denies chest pain, Denies lightheadedness, Denies dyspnea and Denies other (palpitations) Resp Denies cough, Denies dyspnea and Denies wheezing GI Denies abdominal pain, Denies melena, Denies hematochezia, Denies change in bowel habits, Denies dyspepsia and Denies nausea Denies hematuria and Denies dysuria Musc Denies abnormal gait, Denies myalgias, Denies arthralgias, Denies numbness and Denies tingling Skin/Breast Denies rash, Denies unusual bruising and Denies wounds Neuro Denies abnormal gait, Denies dizziness, Denies headache(s), Denies memory loss, Denies numbness, Denies Sensory deficit (Neuro), Denies tingling and Denies weakness Psych Denies anxiety, Denies depression and Denies memory loss Endo Denies cold intolerance, Denies fatigue, Denies heat intolerance, Denies polydipsia and Denies polyuria Grant/Lymph Denies easy bleeding and Denies easy bruising Aller/Immun Denies wheezing Physical exam (Primary Care) Vital Signs: Last Vital Signs Temp 97.9 F 04/16/25 10:26 Pulse 87 04/16/25 10:26 Resp 16 04/16/25 10:26 BP 119/70 04/16/25 10:26 Pulse Ox 97 04/16/25 10:26 Oxygen Delivery Method Room Air 04/16/25 10:26 BMI result Body Mass Index 27.5 Tobacco/Smoking Status: Tobacco use Status Tobacco use date assessed 04/16/25 04/16/25 10:29 Patient Tobacco Use Status Never used Tobacco 04/16/25 10:19 e-Cigarette/Vaping Use Never Used 04/16/25 10:19 PHQ-9: PHQ-9 Score PHQ-9: Total score 2 04/16/25 11:11 Depression Screening Interpretation: Negative Thrive Assessment: Date of Thrive Assessment Date Thrive assessed 04/16/25 04/16/25 10:19 Currently or been in a relationship where the following occur: No concerns reported Const Other: General: no acute distress, well developed, alert and awake Nutritional Appearance: well nourished Orientation/consciousness: patient oriented x3 [facility] Head: Yes normocephalic and Yes atraumatic Ears: hearing grossly normal bilaterally and TM's normal bilaterally General nose exam: Normal external nose present and Normal nares present Mouth: Normal oral and palatal mucosa present and moist mucous membranes Teeth and gingiva: dentition normal Throat: Yes oropharynx normal Eyes Pupils: Equal, round and reactive pupils present and Pupil accommodation reflex normal EOM: EOMs intact bilaterally Neck Neck: Yes normal visual inspection, Yes no lymphadenopathy and Yes trachea midline Thyroid: Thyroid normal Carotids: no bruits Lymphatic: no lymphadenopathy noted Chest Chest palpation & inspection: normal inspection of the chest Resp Effort & Inspection: normal respiratory effort Auscultation: clear to auscultation bilaterally Cardio Rate: regular rate Rhythm: regular rhythm Heart sounds: S1 normal heart sound present, S2 normal heart sound present, no gallops, no murmurs and no rubs Bruits: no abdominal aortic bruits and no carotid bruits GI Palpation (GI): No Abdominal aortic bruit present, Soft to palpation, nontender, No hepatosplenomegaly present and No Rebound tenderness present Auscultation: normal bowel sounds General: Yes no CVA tenderness Back/Spine/Pelvis Back: no CVA tenderness Cervical Spine: cervical ROM normal and No Cervical spine tenderness Thoracic/Lumbar Spine: thoraco-lumbar ROM normal, No pain with thoraco-lumbar ROM, No thoracic spinal tenderness and No lumbar spinal tenderness Skin General: warm and dry. Normal skin color. Normal skin turgor Lesions: no lesions Rashes: no rashes Trauma: no lacerations or abrasions Wounds: no wounds Nails: normal Neuro General: patient oriented x3, gait normal and CN's II-XI intact bilaterally Cranial nerves: Yes Equal, round and reactive pupils present Cognition (Neuro): normal cognition Gait exam (Neuro): Normal gait present Motor exam (neuro): 5/5 motor strength present throughout Sensory Exam: No Sensory deficit (Neuro) Deep tendon reflexes (DTR's): Right patellar reflex intensity grade: 2+ and Left patellar reflex intensity grade: 2+ Extrem General: Yes normal to inspection, No edema and No calf tenderness Psych Appearance: grossly normal Affect: normal affect Attitude: cooperative Thought process: Normal thought process present Office Procedures Flu Questionnaire Does the patient have a severe egg allergy?: No Does the patient have severe life threatening allergies?: No Does the patient have a fever or illness today?: No Has the patient ever had Guillain-[place] Syndrome?: No Has the patient ever had any past reaction to a flu shot?: No Immunizations Fluarix [id number] (PF) 45 mcg (15 mcg x 3)/0.5 mL IM syringe Performing Provider: Alex Stratton CNP Performing Location: [facility] [place] [facility] Administered by: Candelaria Don RN on 04/16/25 11:08 Dose Route Admin Location Dispensed Lot Number Expiration Date NDC Seafood Preparer 0.5 mL IM Left Deltoid 0.5 mL [id number] 11/26/25 98199-851-09 [employer] VIS Given Date VIS Provided VIS Publication Date 04/16/25 Single Vaccine 24 Eligibility Eligibility Date Funding Source Not [facility] Eligible 04/16/25 Private Coding Level of Care Code Est Pt Prev Care 18-39y([id number]) Diagnoses Normal physical exam Z00.00 Laboratory tests ordered as part of a complete physical exam (CPE) Z00.00 Additional Codes BOBBY-7 Assessment Billing - BOBBY-7 Assessment Tool: BOBBY-7 Assessment 51204 ([id number]) PHQ-9 - 81600 - PHQ-9 Billing: Yes ([id number]) Assessment & Plan Assessment & Plan (1) Normal physical exam: Code(s): Z00.00 - Encounter for general adult medical examination without abnormal findings Category: Medical Plan: No significant functional limitation noted. Continue current treatment regimen. Healthy diet and routine exercise encouraged. Follow-up with OBGYN as planned. Perform lab work and follow-up for telehealth visit for labs review in 2-3 weeks. Return sooner with symptoms or concerns. Verbalized understanding and agreed with the plan. (2) Laboratory tests ordered as part of a complete physical exam (CPE): Code(s): Z00.00 - Encounter for general adult medical examination without abnormal findings Category: Medical Plan: Fasting labs ordered as part of a complete physical exam. Advised to fast for at least 10 hours before getting labs drawn. May drink water Verbalized understanding and agreed with treatment plan. Orders: Orders Influenza [id number] Immunization Today Z23 - Encounter for immunization Comprehensive [place]. Panel Fast Today Z00.00 - Encounter for general adult medical examination without abnormal findings Lipid Panel Today Z00.00 - Encounter for general adult medical examination without abnormal findings TSH reflex Free T4 Today Z00.00 - Encounter for general adult medical examination without abnormal findings UA CC w/rflx Micro + Cult Today Z00.00 - Encounter for general adult medical examination without abnormal findings Complete Blood Count Auto Diff Today Z00.00 - Encounter for general adult medical examination without abnormal findings Microalbumin, Random (w Creat) Today Z00.00 - Encounter for general adult medical examination without abnormal findings Vitamin D 25-OH Total Today Z00.00 - Encounter for general adult medical examination without abnormal findings
[2025-04-16 10:26] VITALS: BP 119/70; PULSE 87; RESP 16; TEMP 36.6; O2SAT 97; BMI 27.5
== END 2025-04-16 11:12 | disposition home or self-care (01) ==
LOC: HO.HMCFM 10:17
PROVIDERS: PCP Nurse Practitioner Family; Visit Provider Nurse Practitioner Family
DX: Z23 Encounter for immunization (principal); Z00.00 Encounter for general adult medical examination without abnormal findings

== ENCOUNTER → 2025-04-16 10:16 | Outpatient (BNVA) | payer OTHER, SELFPAY | PROVIDERS: PCP Nurse Practitioner Family; Visit Provider Nurse Practitioner Family | DX: Z00.00 Encounter for general adult medical examination without abnormal findings (principal); Z23 Encounter for immunization | CPT/HCPCS: 90471; 90656; 96127 ==